=== PATIENT | female | born 1970 ===

== ENCOUNTER 2018-12-26 08:01 | Day surgery (SDC) | payer BC ==
[2018-12-26 08:41] VITALS: BP 161/83; PULSE 59; RESP 16; TEMP 98.3; O2SAT 97
[2018-12-26] MEDS ORDERED: Propofol 10 mg/ml Inj (20 ML) ONE (08:49)
== END 2018-12-26 10:15 | disposition short-term general hospital (02) ==
LOC: ENDO 08:01
PROVIDERS: ATTEND Internal Medicine Gastroenterology
DX: R11.2 Nausea with vomiting, unspecified (principal); K21.9 Gastro-esophageal reflux disease without esophagitis; I10 Essential (primary) hypertension; E11.9 Type 2 diabetes mellitus without complications; E03.9 Hypothyroidism, unspecified; Z53.09 Procedure and treatment not carried out because of other contraindication

== ENCOUNTER 2018-12-26 10:13 | Emergency (ER) | payer BC ==
[2018-12-26 10:20] VITALS: BP 157/93; PULSE 62; RESP 18; TEMP 97.8; O2SAT 98; BMI 34.2
[2018-12-26] MEDS ORDERED: Insulin Regular 1 UNITS/0.01 ML ML SC STA (10:48)
[2018-12-26] MEDS ORDERED: Sodium Chloride 0.9% 1,000 ML IV STA ×2 (10:48→13:23)
[2018-12-26] MEDS ORDERED: Dextrose 50% SYRINGE Inj (50 ml) IV PRN (10:48)
[2018-12-26 11:31] LABS: BASO # 0.03 {null, K/mm3} (0.0-2.0); BASO % 0.6 % (0.0-3.0); EOS % 0.4 % (1.5-5.0); HEMOGLOBIN 13.2 g/dL (12.0-16.0); LYMPH % 20.2 % (22.0-35.0); MEAN CELL VOLUME 85.7 fl (80.0-105.0); MEAN CORPUSCULAR HEMOGLOBIN 28.1 pg (25.0-35.0); MEAN CORPUSCULAR HGB CONC 32.8 g/dl (31.0-37.0); MEAN PLATELET VOLUME 11.1 fl (7.0-11.0); MONO # 0.3 (0.1-0.6); MONO % 6.5 % (1.0-6.0); RBC 4.7 {null, 10^6/uL} (3.5-6.1); RED CELL DISTRIBUTION WIDTH 13.6 % (11.5-14.5); WHITE BLOOD COUNT 4.8 {null, 10^3/uL} (4.5-11.0)
[2018-12-26 11:47] LABS: ALB/GLOB RATIO 1.1 (1.1-1.8); ALBUMIN 4.1 g/dL (3.0-4.8); ALT/SGPT 38 U/L (7-56); AST/SGOT 46 U/L (14-36); BLOOD UREA NITROGEN 10 mg/dL (7-21); CALCIUM 9.2 mg/dL (8.4-10.5); GFR NON-AFRICAN AMERICAN > 60; LIPASE 118 U/L (23-300); TROPONIN I < 0.01 ng/mL
--- NOTE | 2018-12-26 12:36 | ED PDOC ---
Arrival/HPI - General Historian: Patient - History of Present Illness Narrative History of Present Illness (Text): 48 y/o female with PMH of HTN, DM, gastritis, HLD, hypothyroidism presents to the ED with elevated blood surgar reading at 425 prior to EGD at [facility] endoscopy unit. Patient denies current symptoms of headache, chest pain, cough, palpitations, focal neurological symptoms, N/N/D. Patient states that she is newly diagnosed with DM after experiencing increased urination, feeling thirsty, numbness in her feet, visual changes. Patient was prescribed Metformin 500 mg daily but she does not take it. Patient denies recent sick contact or recent sickness. She does not check her blood glucose at home. Time/Duration: Prior to Arrival Symptom Onset: Sudden Symptom Course: Unchanged <Augie Mahmood - Last Filed: 12/26/18 14:14> <Miguel Escobar - Last Filed: 12/26/18 16:18> - General Chief Complaint: GI Problem Time Seen by Provider: 12/26/18 10:17 Past Medical History - Provider Review Nursing Documentation Reviewed: Yes - Cardiac Hx Cardiac Disorders: Yes Hx Hypertension: Yes Hx Pacemaker: No - Neurological Hx Paralysis: No - Endocrine/Metabolic Hx Endocrine Disorders: Yes Hx Diabetes Mellitus Type 2: Yes Hx Hypothyroidism: Yes - Hematological/Oncological Hx Blood Transfusions: Yes Hx Blood Transfusion Reaction: No - Musculoskeletal/Rheumatological Hx Musculoskeletal Disorders: No - Psychiatric Hx Emotional Abuse: No Hx Physical Abuse: No Hx Substance Use: No - Anesthesia Hx Anesthesia Reactions: No Hx Malignant Hyperthermia: No - Suicidal Assessment Feels Threatened In Home Enviroment: No <Augie Mahmood - Last Filed: 12/26/18 14:14> Family/Social History - Physician Review Nursing Documentation Reviewed: Yes Family/Social History: No Known Family HX Smoking Status: Former Smoker Hx Alcohol Use: Yes (SOCIAL) Hx Substance Use: No <Augie Mahmood - Last Filed: 12/26/18 14:14> Allergies/Home Meds <Augie Mahmood - Last Filed: 12/26/18 14:14> <Miguel Escobar - Last Filed: 12/26/18 16:18> Allergies/Adverse Reactions: Allergies No Known Allergies Allergy (Verified 12/26/18 10:37) Home Medications: Home Meds Medication Instructions Recorded Confirmed Acetaminophen [Tylenol] 325 mg PO Q6H PRN 12/26/18 12/26/18 Valsartan/Hydrochlorothiazide 1 tab PO DAILY 12/26/18 12/26/18 [Valsartan-Hctz 320-25 mg Tab] Review of Systems - Review of Systems Constitutional: absent: Night Sweats Eyes: Vision Changes ENT: Normal Respiratory: Normal. absent: SOB, Cough, Wheezing Cardiovascular: absent: Palpitations, Edema, Calf Pain, BOUCHER Gastrointestinal: Nausea. absent: Abdominal Pain, Stool Changes, Constipation, Diarrhea, Vomiting Genitourinary Female: Frequency. absent: Vaginal Discharge Musculoskeletal: Normal Skin: Normal. absent: Rash, Pruritis Neurological: absent: Headache, Dizziness, Focal Weakness Endocrine: Polyuria, Polydipsia. absent: Diaphoresis Hemo/Lymphatic: absent: Adenopathy Psychiatric: Normal <Augie Mahmood - Last Filed: 12/26/18 14:14> Physical Exam Vital Signs Reviewed: Yes Vital Signs Temp Pulse Resp BP Pulse Ox 12/26/18 10:19 97.8 F 62 18 157/93 H 98 Temperature: Afebrile Blood Pressure: Hypertensive Pulse: Regular Respiratory Rate: Normal Appearance: Positive for: Well-Appearing, Non-Toxic, Comfortable Pain Distress: None Mental Status: Positive for: Alert and Oriented X 3 Finger Stick Blood Glucose: 302 - Systems Exam Head: Present: Atraumatic, Normocephalic Pupils: Present: PERRL Extroacular Muscles: Present: EOMI Conjunctiva: Present: Normal Mouth: Present: Dry Pharnyx: Present: Normal. No: ERYTHEMA, EXUDATE Nose (External): Present: Atraumatic Neck: Present: Normal Range of Motion Respiratory/Chest: Present: Clear to Auscultation, Good Air Exchange. No: Respiratory Distress, Wheezes, Rhonchi Cardiovascular: Present: Regular Rate and Rhythm, Normal S1, S2. No: Murmurs, Rub, Gallop Abdomen: Present: Normal Bowel Sounds. No: Tenderness, Distention, Peritoneal Signs Back: Present: Normal Inspection. No: CVA Tenderness, Midline Tenderness Upper Extremity: Present: Normal Inspection, Normal ROM, NORMAL PULSES. No: Cyanosis, Edema Lower Extremity: Present: Normal Inspection, NORMAL PULSES. No: Edema Neurological: Present: CN II-XII Intact, Speech Normal Skin: Present: Warm, Dry, Normal Color. No: Rashes Psychiatric: Present: Alert, Oriented x 3, Normal Insight, Normal Concentration <ElaAugie - Last Filed: 12/26/18 14:14> Vital Signs Temp Pulse Resp BP Pulse Ox 12/26/18 10:19 97.8 F 62 18 157/93 H 98 <Mehrdad Escobaroper - Last Filed: 12/26/18 16:18> Medical Decision Making ED Course and Treatment: Blood sugar level decreased from 425 to 305 after 1 liter of bolus NS and 20 units of regular insulin. Patient is receiving another liter of bolus NS. 12/26/18 14:10 0 - Lab Interpretations Lab Results: Troponin I < 0.01 ng/mL 12/26/18 11:15 Total Bilirubin 0.5 mg/dL (0.2-1.3) 12/26/18 11:15 AST 46 U/L (14-36) H 12/26/18 11:15 ALT 38 U/L (7-56) 12/26/18 11:15 Alkaline Phosphatase 94 U/L (38-126) 12/26/18 11:15 Total Protein 7.7 g/dL (5.8-8.3) 12/26/18 11:15 Albumin 4.1 g/dL (3.0-4.8) 12/26/18 11:15 Globulin 3.6 gm/dL 12/26/18 11:15 Albumin/Globulin Ratio 1.1 (1.1-1.8) 12/26/18 11:15 Lipase 118 U/L (23-300) 12/26/18 11:15 - Medication Orders Current Medication Orders: Discontinued Medications Sodium Chloride (Sodium Chloride 0.9%) 1,000 mls @ 999 mls/hr IV .Q1H1M STA Stop: 12/26/18 11:48 Last Admin: 12/26/18 11:03 Dose: 999 mls/hr eMAR Start Stop Document 12/26/18 11:03 DUNIA (Rec: 12/26/18 11:03 DUNIA [id number]) Intravenous Solution Start Date 12/26/18 Start Time 11:03 End Date 12/26/18 End time 12:03 Total Infusion Time 60 Insulin Human Regular (Humulin R) 20 units SC STAT STA Stop: 12/26/18 10:49 Last Admin: 12/26/18 11:02 Dose: 20 unit MAR Blood Glucose Document 12/26/18 11:02 DUNIA (Rec: 12/26/18 11:02 DUNIA [facility]-ER-20) Blood Glucose Finger Stick Blood Glucose (70-120) 425 Subcutaneous Administrations Document 12/26/18 11:02 DUNIA (Rec: 12/26/18 11:02 DUNIA [facility]-ER-20) Injection Site MAR Injection Site Left Arm Charges for Administration # of Subcutaneous Administrations 1 Ondansetron HCl (Zofran Inj) 4 mg IVP STAT STA Stop: 12/26/18 10:49 Last Admin: 12/26/18 11:18 Dose: Not Given Non-Admin Reason: Patient Refused <Augie Mahmood - Last Filed: 12/26/18 14:14> ED Course and Treatment: 12/26/18 12:41 Seen and examined with the resident. Our history and physical exam reveals an obese woman who was sent to the emergency department from the endoscopy suite for hyperglycemia. Patient is asymptomatic. There is a history of diabetes, but she does not take her medications as prescribed. - Lab Interpretations Lab Results: Troponin I < 0.01 ng/mL 12/26/18 11:15 Total Bilirubin 0.5 mg/dL (0.2-1.3) 12/26/18 11:15 AST 46 U/L (14-36) H 12/26/18 11:15 ALT 38 U/L (7-56) 12/26/18 11:15 Alkaline Phosphatase 94 U/L (38-126) 12/26/18 11:15 Total Protein 7.7 g/dL (5.8-8.3) 12/26/18 11:15 Albumin 4.1 g/dL (3.0-4.8) 12/26/18 11:15 Globulin 3.6 gm/dL 12/26/18 11:15 Albumin/Globulin Ratio 1.1 (1.1-1.8) 12/26/18 11:15 Lipase 118 U/L (23-300) 12/26/18 11:15 - Medication Orders Current Medication Orders: Discontinued Medications Sodium Chloride (Sodium Chloride 0.9%) 1,000 mls @ 999 mls/hr IV .Q1H1M STA Stop: 12/26/18 11:48 Last Admin: 12/26/18 11:03 Dose: 999 mls/hr eMAR Start Stop Document 12/26/18 11:03 DUNIA (Rec: 12/26/18 11:03 DUNIA [facility]-ER-20) Intravenous Solution Start Date 12/26/18 Start Time 11:03 End Date 12/26/18 End time 12:03 Total Infusion Time 60 Insulin Human Regular (Humulin R) 20 units SC STAT STA Stop: 12/26/18 10:49 Last Admin: 12/26/18 11:02 Dose: 20 unit MAR Blood Glucose Document 12/26/18 11:02 DUNIA (Rec: 12/26/18 11:02 DUNIA [facility]-ER-20) Blood Glucose Finger Stick Blood Glucose (70-120) 425 Subcutaneous Administrations Document 12/26/18 11:02 DUNIA (Rec: 12/26/18 11:02 DUNIA [facility]-ER-20) Injection Site MAR Injection Site Left Arm Charges for Administration # of Subcutaneous Administrations 1 Ondansetron HCl (Zofran Inj) 4 mg IVP STAT STA Stop: 12/26/18 10:49 Last Admin: 12/26/18 11:18 Dose: Not Given Non-Admin Reason: Patient Refused <Miguel Escobar - Last Filed: 12/26/18 16:18> - PA / CLOTHES PRESSER / Resident Statement MARLYS has reviewed & agrees with the documentation as recorded. MARLYS has examined the patient and agrees with the treatment plan. <Miguel Escobar - Last Filed: 12/26/18 16:18> Disposition/Present on Arrival - Present on Arrival Any Indicators Present on Arrival: No History of DVT/PE: No History of Uncontrolled Diabetes: Yes Urinary Catheter: No History of Decub. Ulcer: No History Surgical Site Infection Following: None - Disposition Have Diagnosis and Disposition been Completed?: Yes Disposition Time: 14:03 Patient Plan: Discharge <Augie Mahmood - Last Filed: 12/26/18 14:14> - Present on Arrival Any Indicators Present on Arrival: No History of DVT/PE: No History of Uncontrolled Diabetes: Yes Urinary Catheter: No History of Decub. Ulcer: No - Disposition Have Diagnosis and Disposition been Completed?: Yes Patient Plan: Discharge <Miguel Escobar - Last Filed: 12/26/18 16:18> - Disposition Diagnosis: Uncontrolled diabetes mellitus Disposition: HOME/ ROUTINE Patient Problems: Current Active Problems Problem Status Onset Uncontrolled diabetes mellitus Acute Condition: IMPROVED Discharge Instructions (ExitCare): Diabetes Type 2 (DC), Treatment for Type 2 Diabetes Additional Instructions: Please follow up with your primary care physician within 2 days of discharge. Continue taking your home medications as prescribed by your PMD Prescriptions: MetFORMIN ER [Glucophage XR] 500 mg PO DAILY [address] Rosuvastatin Calcium 10 mg PO DAILY 7 Days tablet Levothyroxine [Synthroid] 88 mcg PO DAILY 7 Days tab Referrals: Jimi Braxton MD [Primary Care Provider] - Follow up with primary Forms: [employer] (Pashto)
[2018-12-26 13:11] LABS: URINE BILIRUBIN NEGATIVE (NEGATIVE); URINE BLOOD NEGATIVE (NEGATIVE); URINE GLUCOSE (UA) >=1000 mg/dL (NEGATIVE); URINE LEUKOCYTE ESTERASE NEGATIVE Leu/uL (NEGATIVE); URINE PROTEIN TRACE mg/dL (<30 mg/dL); URINE UROBILINOGEN 0.2 E.U./dL (<1 E.U./dL)
[2018-12-26 13:12] LABS: URINE APPEARANCE CLEAR (CLEAR); URINE COLOR YELLOW (YELLOW)
[2018-12-26 13:29] LABS: URINE BACTERIA FEW /hpf; URINE RBC 0 - 2 /hpf (0-2)
--- NOTE | 2018-12-26 15:28 | CARD ---
APPROVED REPORT Date of service: 12/26/2018 EKG Measurement Heart [id number] <Conclusion> Normal sinus rhythm Left ventricular hypertrophy with repolarization abnormality Abnormal ECG
== END 2018-12-26 16:23 | disposition home or self-care (01) ==
LOC: ED 10:13
DX: E11.65 Type 2 diabetes mellitus with hyperglycemia (principal); Z79.84 Long term (current) use of oral hypoglycemic drugs; Z91.14 Patient's other noncompliance with medication regimen; I10 Essential (primary) hypertension; E78.5 Hyperlipidemia, unspecified; Z87.891 Personal history of nicotine dependence
CPT/HCPCS: 80053; 81001; 82550; 82948; 83615; 83690; 83735; 84100; 84484; 85025; 93005; 96360; 96361; 99283; J7030